=== PATIENT | female | born 1990 | race Caucasian/White ===

== ENCOUNTER 2023-02-14 21:04 | Emergency (ER) | payer MEDICARE ==
--- NOTE | 2023-02-14 21:05 | ERPHSYRPT ---
- History of Present Illness Time Seen by Provider: 02/14/23 21:04 Historian: patient, family (Additional independent history was obtained from the patient's mother) Exam Limitations: no limitations Physician History: This is an overweight 32-year-old white female patient who presents with epigastric abdominal pain 8 days after an upper and lower endoscopy. She began having pain 5 days ago and it was intermittent. It is a crampy sharp pain in the epigastric region. It is localized. Patient was diagnosed with esophagitis and had a rectal polyp removed. Patient has a history of GERD and is on Protonix for this. Patient has a history of hypothyroidism, depression, asthma, Crohn's disease, bipolar disorder, hypertension and diabetes. Patient has not had vomiting. She chronically has diarrhea. She has chronic intermittent dizziness. Patient denies chest pain. Patient denies shortness of breath. Patient has had a section in the past and cholecystectomy. Timing/Duration: day(s) (5), intermittent, worse Activities at Onset: none Quality: cramping, sharpness Abdominal Pain Onset Location: epigastric Pain Radiation: no radiation Severity of Pain-Max: moderate Severity of Pain-Current: mild (To moderate) Modifying Factors: Improves With: nothing Associated Symptoms: diarrhea, No chest pain, No nausea, No shortness of breath, No vomiting Allergies/Adverse Reactions: clindamycin Allergy (Verified 02/14/23 21:26) Vomiting ondansetron [From Zofran] Allergy (Verified 02/14/23 21:26) paroxetine [From Paxil] Allergy (Verified 02/14/23 21:26) Hives Home Medications: Aripiprazole [Abilify Maintena] 400 mg IM CLARIFY 11/14/22 [History] Meclizine HCl 25 mg [Antivert 25 mg] 1 tab PO Q6H PRN PRN 11/14/22 [History] Venlafaxine HCl [Venlafaxine HCl ER] 1 tab PO DAILY 11/14/22 [History] lamoTRIgine [Lamictal] 2 tab PO DAILY 11/14/22 [History] modafiniL [Modafinil] 1 tab PO BID 11/14/22 [History] Empagliflozin [Jardiance] 10 mg PO DAILY 02/14/23 [History] Levothyroxine Sodium 75 mcg PO DAILY 02/14/23 [History] Metoprolol Tartrate 50 mg [Lopressor 50 MG] 50 mg PO DAILY 02/14/23 [History] PANTOPRAZOLE 40 mg Tablet [Protonix 40MG Tablet] 1 tab PO DAILY 02/14/23 [History] Semaglutide [Ozempic] 0.5 mg SQ WEEKLY 02/14/23 [History] Hx Tetanus, Diphtheria Vaccination/Date Given: Yes Hx Influenza Vaccination/Date Given: Yes Travel Risk - International Travel Have you traveled outside of the country in past 3 weeks: No - Coronavirus Screening Are you exhibiting any of the following symptoms?: No Close contact with a COVID-19 positive Pt in past 14-21 Days: No - Vaccine Status Have you recieved a Covid-19 vaccination: Yes [employer]aster: Moderna - Vaccination Dates Date of 2cond Vaccination (if applicable): ? - Review of Systems Constitutional: No Symptoms Eyes: No Symptoms Ears, Nose, & Throat: No Symptoms Respiratory: No Symptoms Cardiac: No Symptoms Abdominal/Gastrointestinal: Abdominal Pain (Epigastric region), Appetite Changes Genitourinary Symptoms: No Symptoms Musculoskeletal: No Symptoms Skin: No Symptoms Neurological: No Symptoms Psychological: No Symptoms Endocrine: No Symptoms Hematologic/Lymphatic: No Symptoms Immunological/Allergic: No Symptoms All Other Systems: Reviewed and Negative - Past Medical History Pertinent Past Medical History: Yes Respiratory History: Asthma Endocrine Medical History: Hypothyroidism, Other Musculoskeletal History: Fractures, Osteoporosis, Other GI Medical History: Crohns Disease, Gallbladder Disease Psycho-Social History: Anxiety, Bipolar, Depression Other Medical History: sleep apnea, pseudo hypo parathyroidism, scoliosis, fx collar bone - Past Surgical History Past Surgical History: Yes Gastrointestinal: Cholecystectomy Female Surgical History: Section Other Surgical History: 16 teeth extracted - Social History Smoking Status: Never smoker Exposure to second hand smoke: No Drug Use: none Patient Lives Alone: No - Nursing Vital Signs Nursing Vital Signs: Initial Vital Signs Temperature 97.3 F 02/14/23 21:11 Pulse Rate 105 H 02/14/23 21:11 Respiratory Rate 18 02/14/23 21:11 Blood Pressure 121/94 02/14/23 21:11 O2 Sat by Pulse Oximetry 99 02/14/23 21:11 Pain Scale Pain Intensity 4 - Physical Exam General Appearance: no apparent distress, alert, anxiety Eye Exam: PERRL/EOMI, eyes nml inspection Ears, Nose, Throat Exam: normal ENT inspection, moist mucous membranes Neck Exam: normal inspection, non-tender, supple, full range of motion Respiratory Exam: normal breath sounds, lungs clear, airway intact, No chest tenderness, No respiratory distress Cardiovascular Exam: regular rate/rhythm, normal heart sounds, normal peripheral pulses Gastrointestinal/Abdomen Exam: soft, normal bowel sounds, tenderness (Epigastric region), guarding (Epigastric region) Pelvic Exam: not done Rectal Exam: not done Back Exam: normal inspection, normal range of motion, No CVA tenderness, No vertebral tenderness Extremity Exam: normal inspection, normal range of motion, pelvis stable Neurologic Exam: alert, oriented x 3, cooperative, 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, normal mood/affect, nml cerebellar function, nml station & gait, sensation nml Skin Exam: normal color, warm, dry Lymphatic Exam: No adenopathy SpO2 Interpretation: normal O2 Delivery: Room Air - Course Nursing assessment & vital signs reviewed: Yes Ordered Tests: Active Orders 24 hr Category Date Time Status IV Insertion STAT Care 02/14/23 21:38 Active ABDOMEN AND PELVIS W/0 CONTRAS [CT] Stat Exams 02/14/23 21:38 Completed AMYLASE Stat Lab 02/14/23 21:40 Completed CBC W DIFF Stat Lab 02/14/23 21:38 Completed CMP Stat Lab 02/14/23 21:40 Completed HCG QUALITATIVE, URINE Stat Lab 02/14/23 Completed LIPASE Stat Lab 02/14/23 21:40 Completed UA W/RFX UR CULTURE Stat Lab 02/14/23 21:41 Completed Medication Summary Discontinued Medications Generic Name Dose Route Start Last Admin Trade Name Marcelq PRN Reason Stop Dose Admin Al Hydrox/Mg Hydrox/Simethicone Confirm 02/14/23 23:12 Mag Hydrox/Al Hydrox/Simeth 30 Ml Udcup Administered 02/14/23 23:13 Dose 30 ml .ROUTE .STK-MED ONE Hydromorphone HCl 0.5 mg 02/14/23 21:38 02/14/23 21:46 Hydromorphone 1 Mg/1ml Inj IV 02/14/23 21:39 0.5 mg STAT ONE Administration Hydromorphone HCl Confirm 02/14/23 21:43 Hydromorphone 1 Mg/1ml Inj Administered 02/14/23 21:44 Dose 1 mg .ROUTE .STK-MED ONE Sodium Chloride 1,000 mls @ 999 mls/hr 02/14/23 21:38 02/14/23 22:51 Sodium Chloride 0.9% 1000 Ml IV 02/14/23 22:38 Infused .Q1H1M STA Infusion Sodium Chloride Confirm 02/14/23 21:44 Sodium Chloride 0.9% 1000 Ml Administered 02/14/23 21:45 Dose 1,000 mls @ ud .ROUTE .STK-MED ONE Lidocaine HCl Confirm 02/14/23 23:12 Lidocaine Hcl Viscous 1 Ml Administered 02/14/23 23:13 Dose 15 ml .ROUTE .STK-MED ONE Magnesium Hydroxide 45 ml 02/14/23 23:09 02/14/23 23:13 Mag Hydrx/Alum Hyd/Simeth/Lido 45 Ml Bottle PO 02/14/23 23:10 45 ml STAT ONE Administration Prochlorperazine Edisylate 5 mg 02/14/23 21:38 02/14/23 21:46 Prochlorperazine Edisylate 10 Mg/2 Ml Vial IV 02/14/23 21:39 5 mg STAT ONE Administration Prochlorperazine Edisylate Confirm 02/14/23 21:44 Prochlorperazine Edisylate 10 Mg/2 Ml Vial Administered 02/14/23 21:45 Dose 10 mg .ROUTE .STK-MED ONE Promethazine HCl Confirm 02/14/23 23:27 Promethazine Hcl 25 Mg Tablet Administered 02/14/23 23:28 Dose 25 mg .ROUTE .STK-MED ONE Lab/Rad Data: Laboratory Result Diagrams 02/14/23 21:38 02/14/23 21:40 Laboratory Results 02/14/23 02/14/23 02/14/23 Range/Units Unknown 21:41 21:40 WBC (4.0-10.5) x10^3/uL RBC (4.1-5.4) x10^6/uL Hgb (12.0-16.0) g/dL Hct (35-47) % MCV (78-100) fL MCH (26-32) pg MCHC (32-36) g/dL RDW (11.5-14.0) % Plt Count (150-450) x10^3/uL MPV (7.5-11.0) fL Gran % (36.0-66.0) % Immature Gran % (Auto) (0.00-0.4) % Nucleat RBC Rel Count (0.00-0.1) % Eos # (Auto) (0-0.5) x10^3/uL Immature Gran # (Auto) (0.00-0.03) x10^3u/L Absolute Lymphs (auto) (1.0-4.6) x10^3/uL Absolute Monos (auto) (0.0-1.3) x10^3/uL Absolute Nucleated RBC (0.00-0.01) x10^3u/L Lymphocytes % (24.0-44.0) % Monocytes % (0.0-12.0) % Eosinophils % (0.00-5.0) % Basophils % (0.0-0.4) % Absolute Granulocytes (1.4-6.9) x10^3/uL Basophils # (0-0.4) x10^3/uL Sodium (137-145) mmol/L Potassium (3.5-5.1) mmol/L Chloride (98-107) mmol/L Carbon Dioxide (22-30) mmol/L Anion Gap (5-15) MEQ/L BUN (7-17) mg/dL Creatinine (0.52-1.04) mg/dL Estimated GFR ML/MIN Glucose (74-106) mg/dL Calcium (8.4-10.2) mg/dL Total Bilirubin (0.2-1.3) mg/dL AST (14-36) U/L ALT (0-35) U/L Alkaline Phosphatase (38-126) U/L Serum Total Protein (6.3-8.2) g/dL Albumin (3.5-5.0) g/dL Amylase (30-110) U/L Lipase 83 (23-300) U/L Urine Color Yellow (Yellow) Urine Appearance Cloudy A (Clear) Urine pH 7.0 (4.6-8.0) Ur Specific [place] 1.015 (1.005-1.030) Urine Protein Negative (Negative) Urine Glucose (UA) Negative (Negative) mg/dL Urine Ketones Negative (Negative) Urine Blood Negative (Negative) Urine Nitrite Negative (Negative) Urine Bilirubin Negative (Negative) Urine Urobilinogen 0.2 (0.2) mg/dL Ur Leukocyte Esterase Trace A (Negative) U Hyaline Cast (Auto) NONE SEEN (0-2) /LPF Urine Microscopic RBC 0-2 (0-5) /HPF Urine Microscopic WBC 3-5 (0-5) /HPF Ur Epithelial Cells Few (None Seen) /HPF Urine Bacteria Rare A (None Seen) /HPF Urine Culture Reflexed NO (NO) Urine HCG, Qual NEGATIVE (NEGATIVE) 02/14/23 02/14/23 Range/Units 21:40 21:38 WBC 7.8 (4.0-10.5) x10^3/uL RBC 6.27 H (4.1-5.4) x10^6/uL Hgb 14.6 (12.0-16.0) g/dL Hct 46.5 (35-47) % MCV 74.2 L (78-100) fL MCH 23.3 L (26-32) pg MCHC 31.4 L (32-36) g/dL RDW 17.4 H (11.5-14.0) % Plt Count 340 (150-450) x10^3/uL MPV 9.0 (7.5-11.0) fL Gran % 63.5 (36.0-66.0) % Immature Gran % (Auto) 0.5 H (0.00-0.4) % Nucleat RBC Rel Count 0.0 (0.00-0.1) % Eos # (Auto) 0 (0-0.5) x10^3/uL Immature Gran # (Auto) 0.04 H (0.00-0.03) x10^3u/L Absolute Lymphs (auto) 2.40 (1.0-4.6) x10^3/uL Absolute Monos (auto) 0.39 (0.0-1.3) x10^3/uL Absolute Nucleated RBC 0.00 (0.00-0.01) x10^3u/L Lymphocytes % 31.0 (24.0-44.0) % Monocytes % 5.0 (0.0-12.0) % Eosinophils % 0.0 (0.00-5.0) % Basophils % 0.0 (0.0-0.4) % Absolute Granulocytes 4.92 (1.4-6.9) x10^3/uL Basophils # 0 (0-0.4) x10^3/uL Sodium 138 (137-145) mmol/L Potassium 3.2 L (3.5-5.1) mmol/L Chloride 105 (98-107) mmol/L Carbon Dioxide 22 (22-30) mmol/L Anion Gap 14.1 (5-15) MEQ/L BUN 7 (7-17) mg/dL Creatinine 0.76 (0.52-1.04) mg/dL Estimated GFR > 60.0 ML/MIN Glucose 112 H (74-106) mg/dL Calcium 7.0 L (8.4-10.2) mg/dL Total Bilirubin 0.80 (0.2-1.3) mg/dL AST 39 H (14-36) U/L ALT 22 (0-35) U/L Alkaline Phosphatase 226 H (38-126) U/L Serum Total Protein 7.2 (6.3-8.2) g/dL Albumin 4.1 (3.5-5.0) g/dL Amylase 57 (30-110) U/L Lipase (23-300) U/L Urine Color (Yellow) Urine Appearance (Clear) Urine pH (4.6-8.0) Ur Specific [place] (1.005-1.030) Urine Protein (Negative) Urine Glucose (UA) (Negative) mg/dL Urine Ketones (Negative) Urine Blood (Negative) Urine Nitrite (Negative) Urine Bilirubin (Negative) Urine Urobilinogen (0.2) mg/dL Ur Leukocyte Esterase (Negative) U Hyaline Cast (Auto) (0-2) /LPF Urine Microscopic RBC (0-5) /HPF Urine Microscopic WBC (0-5) /HPF Ur Epithelial Cells (None Seen) /HPF Urine Bacteria (None Seen) /HPF Urine Culture Reflexed (NO) Urine HCG, Qual (NEGATIVE) - Progress Progress: improved, pain not gone completely Progress Note: 02/14/23 21:46 This patient's medical issue is 1 of moderate complexity. The level complexity in the work-up performed is based on review of the patient's past medical history, review of the patient's medication list, review of the patient's drug allergy list, history present illness and physical findings on examination. Work-up in this patient includes placement of intravenous line, infusion normal saline solution, infusion of half a milligram of Dilaudid, infusion of 5 mg intravenous of Compazine, CBC, CMP, urine test, amylase, lipase, urinalysis and CT scan of the abdomen pelvis without contrast. 02/14/23 23:06 I reviewed the laboratory results. There is no evidence of any acute, emergent medical issue. She has a mild hypokalemia. We will provide her with 10 mEq of potassium. We are also going to add a H. pylori breath test. CT scan of the abdomen pelvis without contrast was interpreted by the radiologist. I reviewed the impression. There is no evidence of any acute intra-abdominal or intrapelvic abnormality. 02/14/23 23:29 Patient was able to hold down the oral liquid required for H. pylori breath test. However, she did not tolerate the GI cocktail and spit the majority of that up. Counseled pt/family regarding: lab results, diagnosis, need for follow-up, rad results Medical Desision Making - Independent Historian Additional History obtained from: Mother - Diagnostic Testing Diagnostic test were ordered, analyzed, and reviewed by me: Yes Radiological Interpretation: Reviewed by me, Teleradiologist Report - Risk of complications The pt has a mod risk of morbidity or mortality based on: Need for prescription drug management - Departure Departure Disposition: Home Clinical Impression: Epigastric pain Condition: Stable Critical Care Time: No Referrals: RICHIE GARAY [Primary Care Provider] - Follow up/PCP as directed Additional Instructions: Clear liquid diet. Advance as tolerated. Avoid fatty greasy spicy foods. Take your medication as prescribed. Call your primary care provider and screen handler on 02/17/2023 to make them aware of your symptoms and to make a follow-up appointment for further evaluation management.. Prescriptions: Promethazine HCl 25 mg [Phenergan 25 mg] 25 mg PO Q8H PRN PRN #10 tablet PRN Reason: Nausea/Vomiting
[2023-02-14 21:13] VITALS: RESP 18; TEMP 97.3
[2023-02-14] MEDS ORDERED: Hydromorphone 1 mg/ml Injection IV ONE (21:38)
[2023-02-14] MEDS ORDERED: Compazine 10 MG/2 ML IV ONE (21:38)
[2023-02-14] MEDS ORDERED: Sodium Chloride 0.9% 1000 ML 1,000 ML IV STA (21:38)
[2023-02-14] MEDS ORDERED: Hydromorphone 1 mg/ml Injection ONE (21:43)
[2023-02-14] MEDS ORDERED: Sodium Chloride 0.9% 1000 ML 1,000 ML ONE (21:44)
[2023-02-14] MEDS ORDERED: Compazine 10 MG/2 ML ONE (21:44)
[2023-02-14 21:53] LABS: Absolute Neutrophil Ct (ANC) 4.92 x10^3/uL (1.4-6.9); Basophil (Absolute #) 0 x10^3/uL (0-0.4); Eosinophil (Absolute #) 0 x10^3/uL (0-0.5); Hematocrit 46.5 % (35-47); Hemoglobin 14.6 g/dL (12.0-16.0); IMMATURE GRAN # 0.04 x10^3u/L (0.00-0.03); IMMATURE GRAN % 0.5 % (0.00-0.4); Mean Cell Volume 74.2 fL (78-100); Mean Corpuscular Hemoglobin 23.3 pg (26-32); Mean Corpuscular Hgb Concent. 31.4 g/dL (32-36); Monocyte (Absolute #) 0.39 x10^3/uL (0.0-1.3); Neutrophil % 63.5 % (36.0-66.0); Platelet Count 340 x10^3/uL (150-450); Red Blood Count 6.27 x10^6/uL (4.1-5.4); Red Cell Distribution Width 17.4 % (11.5-14.0); White Blood Count 7.8 x10^3/uL (4.0-10.5)
[2023-02-14 21:57] LABS: HCG URINE TEST NEGATIVE (NEGATIVE)
[2023-02-14 22:01] LABS: ADD URINE CULTURE? NO (NO); Appearance Cloudy (Clear); Bacteria Rare /HPF (None Seen); Bilirubin Negative (Negative); Blood Negative (Negative); Epithelial Cells Few /HPF (None Seen); Glucose, Urine Negative (Negative); Hyaline Casts NONE SEEN /LPF (0-2); Ketones Negative (Negative); Leukocyte Esterase Trace (Negative); Nitrite Negative (Negative); Protein,Urine Dip Negative (Negative); RBC 0-2 /HPF (0-5); Specific Gravity 1.015 (1.005-1.030); Urobilinogen 0.2 mg/dL (0.2)
[2023-02-14 22:08] LABS: ALBUMIN 4.1 g/dL (3.5-5.0); ALKALINE PHOSPHATASE 226 U/L (38-126); AMYLASE 57 U/L (30-110); ANION GAP 14.1 MEQ/L (5-15); BLOOD UREA NITROGEN 7 mg/dL (7-17); CHLORIDE 105 mmol/L (98-107); Carbon Dioxide 22 mmol/L (22-30); Creatinine 1 0.76 mg/dL (0.52-1.04); EST GLOMERULAR FILTRATION RATE > 60.0 ML/MIN; Glucose 112 mg/dL (74-106); Potassium 3.2 mmol/L (3.5-5.1); SGOT/AST 39 U/L (14-36); SGPT/ALT 22 U/L (0-35); SODIUM 138 mmol/L (137-145); Total Protein 7.2 g/dL (6.3-8.2)
--- NOTE | 2023-02-14 22:47 | XRAY ---
CLINICAL HISTORY:Epigastric abdominal pain COMPARISON:None TECHNIQUE:CT scan of the abdomen and pelvis was performed without IV contrast.Coronal and sagittal reconstructive images were also obtained. FINDINGS: Sections of lower thorax show small clustered nodules in posterobasal segment of right lower lobe, largest measuring 5 mm. Abdomen: The liver is mildly enlarged in size, measuring 16 cm craniocaudally. No focal or diffuse parenchymal abnormality. The intrahepatic biliary radicals and the bile ducts are normal. The spleen is mildly enlarged in size, measuring 13 cm craniocaudally. The pancreas, adrenal glands are unremarkable. The kidneys are normal in size and shape. No calculi or hydronephrosis. Few small areas of focal cortical scarring seen in both kidneys with mild perinephric fat stranding. The gallbladder is surgically removed. The ascending colon, the transverse colon, the descending colon, visualized small bowel loops are unremarkable. Appendix appears normal. There is no evidence of significant enlargement of the mesenteric or retroperitoneal lymph nodes. Pelvis: The urinary bladder shows inadequate distension. The rectosigmoid colon is unremarkable. The uterus and adnexa appear unremarkable. No evidence of pelvic lymphadenopathy. No definite bony abnormalities could be depicted. IMPRESSION: 1. No significant acute abnormality detected in abdomen and pelvis 2. Mild hepatosplenomegaly 3. Small focal areas of cortical scarring in both kidneys with mild perinephric fat stranding, could represent sequelae to previous insult 4. Small clustered nodules in posterobasal segment of right lower lobe, largest measuring 5 mm, Low risk as per [employer] guidelines Electronically Signed by: Osmel Jones MD. (02/14/2023 21:45:57 [employer]INDLE [employer]UMBER)
[2023-02-14 23:09] VITALS: BP 92/70; PULSE 85; O2SAT 97
[2023-02-14] MEDS ORDERED: GI COCKTAIL 45 ML (Maalox/Lidocaine) PO ONE (23:09)
[2023-02-14] MEDS ORDERED: XYLOCAINE HCl Viscous ONE (23:12)
[2023-02-14] MEDS ORDERED: MAALOX ES 30 ML UNIT DOSE ONE (23:12)
[2023-02-14] MEDS ORDERED: PHENERGAN 25 MG ONE (23:27)
[2023-02-14] MEDS ORDERED: PHENERGAN 25 MG PO ONE (23:30)
[2023-02-18 10:14] LABS: H pylori Breath Test Negative (Negative)
== END 2023-02-14 23:43 | disposition home or self-care (01) ==
LOC: ED 21:04
DX: R10.13 Epigastric pain (principal); I10 Essential (primary) hypertension; E11.9 Type 2 diabetes mellitus without complications; Z79.84 Long term (current) use of oral hypoglycemic drugs; Z79.85 Long-term (current) use of injectable non-insulin antidiabetic drugs; Z79.899 Other long term (current) drug therapy
CPT/HCPCS: 36000; 36415; 74176; 80053; 81001; 81025; 82150; 83013; 83690; 85025; 96360; 96374; 96375; 99284; J1170; A9270-GY

== ENCOUNTER 2023-06-17 23:03 | Emergency (ER) | payer MEDICARE | END 2023-06-18 01:00 | disposition left against medical advice (07) | LOC: ED 23:03 | DX: Z53.21 Procedure and treatment not carried out due to patient leaving prior to being seen by health care provider (principal) ==

== ENCOUNTER 2023-08-13 11:18 | Day surgery (SDC) | payer MEDICARE ==
[2023-08-13] MEDS ORDERED: LIDOCAINE HCL 1% 50 MG/5 ML VL PF IJ ONE (11:19)
[2023-08-13] MEDS ORDERED: Sodium Chloride 0.9(Preservative Free) 10 ML IJ ONE (11:19)
[2023-08-13] MEDS ORDERED: Depo-Medrol 40 MG/ML IM ONE (11:19)
[2023-08-13 11:48] LABS: HCG URINE TEST NEGATIVE (NEGATIVE)
[2023-08-13] MEDS ORDERED: Versed 2 MG/2 ML Injection ONE (12:08)
[2023-08-13] MEDS ORDERED: DIPRIVAN 200 MG/20 ML IV ONE (13:32)
[2023-08-13] MEDS ORDERED: Lactated Ringers 1,000 ML IV ONE (13:46)
--- NOTE | 2023-08-13 15:14 | XRAY ---
Indication: Lumbar MICHAEL. Intraoperative fluoroscopy provided for 21 seconds. 2 digital spot image submitted for interpretation demonstrates posterior needle tip projecting posterior to L4-L5 interspace. Small amount of contrast injected for needle tip placement. Correlate with intraoperative findings/report.
--- NOTE | 2023-08-13 15:16 | XRAY ---
21 seconds of fluoroscopy was used in surgery for a lumbar MICHAEL.
== END 2023-08-13 13:52 | disposition home or self-care (01) ==
LOC: SDC-PAIN 11:18
PROVIDERS: ATTEND Psychiatry & Neurology Pain Medicine
DX: M54.16 Radiculopathy, lumbar region (principal)
CPT/HCPCS: 62323; 72100; 77003; 81025; J1010; J2001; J2250; J2704; Q9966

== ENCOUNTER 2023-08-29 16:45 | Emergency (ER) | payer MEDICARE ==
--- NOTE | 2023-08-29 16:49 | ERPHSYRPT ---
- History of Present Illness Time Seen by Provider: 08/29/23 16:46 Source: patient Exam Limitations: no limitations Physician History: This is an overweight 33-year-old white female patient who was at home and approximately 1:00 to 2:00 this afternoon the patient's left ankle and foot were in a position while she was lying down causing her to have some numbness in these areas. She then thought in order to "wake up, the left foot and ankle she stood up and the foot extended and then she went to step down and the left foot and ankle rolled. She was having pain in the left anterior ankle and dorsum of the left foot. She presented to the emergency department wearing a left foot shoe. She was brought back to the emergency department room in a wheelchair. Patient does see Dr. Garcia who is a pain specialist. She had an appointment scheduled with him yesterday, 08/28/2023. Patient has a history of gastroesophageal reflux disease, hypothyroidism, depression, asthma, Crohn's disease, bipolar disorder, hypertension and diarrhea Method of Injury: twisted Occurred: this afternoon Quality: constant, aching Severity of Pain-Max: mild (To moderate) Severity of Pain-Current: mild Lower Extremities Pain: foot: left, ankle: left Modifying Factors: Improves With: movement Associated Symptoms: other (To bear weight) Allergies/Adverse Reactions: clindamycin Allergy (Verified 08/29/23 16:50) Vomiting ondansetron [From Zofran] Allergy (Verified 08/29/23 16:50) paroxetine [From Paxil] Allergy (Verified 08/29/23 16:50) Hives Home Medications: Aripiprazole [Abilify Maintena] 400 mg IM CLARIFY 11/14/22 [History] Meclizine HCl 25 mg [Antivert 25 mg] 1 tab PO Q6H PRN PRN 11/14/22 [History] Venlafaxine HCl [Venlafaxine HCl ER] 1 tab PO DAILY 11/14/22 [History] lamoTRIgine [Lamictal] 2 tab PO DAILY 11/14/22 [History] modafiniL [Modafinil] 1 tab PO BID 11/14/22 [History] Empagliflozin [Jardiance] 10 mg PO DAILY 02/14/23 [History] Levothyroxine Sodium 75 mcg PO DAILY 10/20/23 [History] Metoprolol Tartrate 50 mg [Lopressor 50 MG] 50 mg PO DAILY 02/14/23 [History] PANTOPRAZOLE 40 mg Tablet [Protonix 40MG Tablet] 1 tab PO DAILY 02/14/23 [History] Semaglutide [Ozempic] 0.5 mg SQ WEEKLY 02/14/23 [History] Hx Tetanus, Diphtheria Vaccination/Date Given: Yes Hx Influenza Vaccination/Date Given: Yes Hx Pneumococcal Vaccination/Date Given: No Travel Risk - International Travel Have you traveled outside of the country in past 3 weeks: No - Emerging Infectious Disease Are you exhibiting symptoms associated with any current EIDs: No - Review of Systems Constitutional: No Symptoms Eyes: No Symptoms Ears, Nose, & Throat: No Symptoms Respiratory: No Symptoms Cardiac: No Symptoms Abdominal/Gastrointestinal: No Symptoms Genitourinary Symptoms: No Symptoms Musculoskeletal: Injury (Left ankle and left foot) Skin: No Symptoms Neurological: No Symptoms Psychological: No Symptoms Endocrine: No Symptoms Hematologic/Lymphatic: No Symptoms Immunological/Allergic: No Symptoms All Other Systems: Reviewed and Negative - Past Medical History Pertinent Past Medical History: Yes Neurological History: No Pertinent History ENT History: No Pertinent History Cardiac History: Hypertension Respiratory History: Asthma Endocrine Medical History: Hypothyroidism, Other Musculoskeletal History: Fractures, Osteoporosis, Other GI Medical History: Crohns Disease, Gallbladder Disease History: No Pertinent History Psycho-Social History: Anxiety, Bipolar, Depression Other Medical History: sleep apnea, pseudo hypo parathyroidism, scoliosis, fx collar bone - Past Surgical History Past Surgical History: Yes Gastrointestinal: Cholecystectomy Female Surgical History: Section Other Surgical History: 16 teeth extracted - Social History Smoking Status: Never smoker Exposure to second hand smoke: No Drug Use: none Patient Lives Alone: No - Physical Exam General Appearance: no apparent distress, alert, anxiety, obese Eyes, Ears, Nose, Throat Exam: normal ENT inspection, moist mucous membranes Neck Exam: normal inspection, non-tender, supple, full range of motion Cardiovascular/Respiratory Exam: chest non-tender, no respiratory distress Gastrointestinal/Abdominal Exam: non-tender Back Exam: normal inspection, normal range of motion, No CVA tenderness, No vertebral tenderness Hips Exam: bilateral: non-tender, normal inspection, normal range of motion, no evidence of injury Legs Exam: bilateral leg: non-tender, normal inspection, normal range of motion, no evidence of injury Knees Exam: bilateral knee: non-tender, normal inspection, normal range of motion, no evidence of injury Ankle Exam: right ankle: non-tender, left ankle: soft tissue tenderness, bilateral ankle: normal inspection, normal range of motion, no evidence of injury Foot Exam: right foot: non-tender, bilateral foot: normal inspection, normal range of motion, no evidence of injury Neuro/Tendon Exam: normal sensation, normal motor functions, normal tendon functions, responds to pain, no evidence tendon injury Mental Status Exam: alert, oriented x 3, cooperative Skin Exam: normal color, warm, dry SpO2 Interpretation: normal - Course Nursing assessment & vital signs reviewed: Yes Ordered Tests: Active Orders 24 hr Category Date Time Status ANKLE (3 VIEWS) Stat Exams 08/29/23 16:50 Ordered FOOT (MINIMUM 3 VIEWS) Stat Exams 08/29/23 16:50 Ordered - Progress Progress: unchanged Progress Note: 08/29/23 17:07 My medical decision and the assignment of low complexity to this patient's medical issue is based on review of the patient's past medical history, review of patient's medication list, review the patient drug allergy list, history present illness and physical findings on examination. The workup in this patient includes x-ray of the left ankle and left foot. Differential diagnosis is left foot and ankle sprain, left foot and ankle dislocation, left foot and ankle fracture. The x-ray of the left ankle was interpreted by the radiologist and I reviewed the impression. The impression states no acute fracture or dislocation but mild, lateral soft tissue swelling. The x-ray of the left foot was interpreted by radiologist and I reviewed the impression. The impression states no acute fracture or dislocation. 08/29/23 17:12 Counseled pt/family regarding: diagnosis, need for follow-up, rad results Medical Desision Making - Diagnostic Testing Diagnostic test were ordered, analyzed, and reviewed by me: Yes Radiological Interpretation: Reviewed by me, Teleradiologist Report - Risk of complications The pt has a mod risk of morbidity or mortality based on: Need for prescription drug management - Departure Departure Disposition: Home Clinical Impression: Sprain of left ankle, Sprain of left foot Condition: Stable Critical Care Time: No Referrals: RICHIE GARAY [Primary Care Provider] - Follow up/PCP as directed Additional Instructions: Ice pack to tender area 3 times a day for the next 48 hours. Use ibuprofen, Tylenol and the new prescription of Flexeril for pain relief. If symptoms have not significantly improved after 72 hours with your treatment regimen, follow-up with your primary care provider, podiatry at [facility] or use walk-in clinic at [facility] orthopedic clinic. This clinic is a walk-in clinic and does not require an appointment. It is open 8 AM to 10 AM Friday through Friday. Prescriptions: Cyclobenzaprine HCl 10 mg [Cyclobenzaprine 10 MG] 10 mg PO TID #10 tablet
[2023-08-29 17:02] VITALS: BP 119/76; PULSE 104; RESP 18; TEMP 97; O2SAT 96
--- NOTE | 2023-08-29 17:05 | XRAY ---
Indication: Pain following injury. Comparison: None 3 view left ankle demonstrates small plantar heel spur and mild lateral soft tissue swelling. No other bony, articular, or soft tissue abnormalities.
--- NOTE | 2023-08-29 17:05 | XRAY ---
Indication: Pain following injury. Comparison: None 3 nonweightbearing views left foot demonstrates small plantar heel spur. No other bony, articular, or soft tissue abnormalities.
== END 2023-08-29 17:16 | disposition home or self-care (01) ==
LOC: ED 16:45
DX: S93.402A Sprain of unspecified ligament of left ankle, initial encounter (principal); S93.602A Unspecified sprain of left foot, initial encounter; X50.0XXA Overexertion from strenuous movement or load, initial encounter; I10 Essential (primary) hypertension; Z79.85 Long-term (current) use of injectable non-insulin antidiabetic drugs; Z79.84 Long term (current) use of oral hypoglycemic drugs; Z79.899 Other long term (current) drug therapy
CPT/HCPCS: 73610; 73630; 99283

== ENCOUNTER 2023-09-17 12:54 | Day surgery (SDC) | payer MEDICARE ==
[2023-09-17] MEDS ORDERED: Xylocaine-Mpf 2% 5 Ml Vial IJ ONE (12:55)
[2023-09-17 13:07] LABS: HCG URINE TEST NEGATIVE (NEGATIVE)
[2023-09-17] MEDS ORDERED: Lactated Ringers 1,000 ML IV ONE (13:54)
[2023-09-17] MEDS ORDERED: DIPRIVAN 200 MG/20 ML IV ONE (14:16)
--- NOTE | 2023-09-17 16:29 | XRAY ---
Indication: Bilateral L4-S1 MBB. Intraoperative fluoroscopy provided for 23 seconds. Single digital spot image submitted for interpretation demonstrates posterior needle tips projecting over the expected left and right L4-S1 nerve roots. Correlate with intraoperative findings/report.
--- NOTE | 2023-09-17 17:20 | XRAY ---
23 seconds of fluoroscopy was used in surgery for a bilateral L4-S1 MBB.
== END 2023-09-17 14:55 | disposition home or self-care (01) ==
LOC: SDC-PAIN 12:54
PROVIDERS: ATTEND Psychiatry & Neurology Pain Medicine
DX: M47.816 Spondylosis without myelopathy or radiculopathy, lumbar region (principal)
CPT/HCPCS: 64493; 64494; 72020; 77002; 81025; J2704

== ENCOUNTER 2024-01-28 07:04 | Day surgery (SDC) | payer MEDICARE ==
[2024-01-28] MEDS ORDERED: Sodium Chloride 0.9(Preservative Free) 10 ML IJ ONE (07:05)
[2024-01-28] MEDS ORDERED: Depo-Medrol 40 MG/ML IM ONE (07:05)
[2024-01-28] MEDS ORDERED: LIDOCAINE HCL 1% AMPUL 5 ML IJ ONE (07:05)
[2024-01-28 07:18] LABS: HCG URINE TEST NEGATIVE (NEGATIVE)
[2024-01-28] MEDS ORDERED: DIPRIVAN 200 MG/20 ML IV ONE (08:27)
[2024-01-28] MEDS ORDERED: Xylocaine-Mpf 2% 5 Ml Vial ONE (08:27)
[2024-01-28] MEDS ORDERED: Lactated Ringers 1,000 ML IV ONE (09:52)
--- NOTE | 2024-01-28 10:35 | XRAY ---
Indication: Lumbar MICHAEL. Intraoperative fluoroscopy was provided for 10 seconds. 3 digital spot images submitted for interpretation demonstrates posterior needle tip projecting posterior to lumbosacral junction interspace. Small amount of contrast injected for needle placement. Correlate with intraoperative findings/report.
--- NOTE | 2024-01-28 11:33 | XRAY ---
10 seconds of fluoroscopy was used in surgery for a lumbar MICHAEL.
== END 2024-01-28 08:55 | disposition home or self-care (01) ==
LOC: SDC-PAIN 07:04
PROVIDERS: ATTEND Psychiatry & Neurology Pain Medicine
DX: M54.16 Radiculopathy, lumbar region (principal); E11.9 Type 2 diabetes mellitus without complications
CPT/HCPCS: 62323; 72100; 77003; 81025; 82947; J2704; Q9966

== ENCOUNTER 2024-03-11 08:19 | Day surgery (SDC) | payer MEDICARE ==
[2024-03-11] MEDS ORDERED: Depo-Medrol 40 MG/ML IM ONE (08:20)
[2024-03-11] MEDS ORDERED: BUPIVACAINE 0.5% VIAL IJ ONE (08:20)
[2024-03-11 09:03] LABS: HCG URINE TEST NEGATIVE (NEGATIVE)
[2024-03-11] MEDS ORDERED: D50W 50 ml Abboject IV ONE (09:30)
[2024-03-11] MEDS ORDERED: MORPHINE SULFATE 2 MG INJ ONE (09:54)
[2024-03-11] MEDS ORDERED: DIPRIVAN 200 MG/20 ML IV ONE ×2 (10:02→10:11)
--- NOTE | 2024-03-11 11:19 | XRAY ---
Indication: Left ankle injection. Intraoperative fluoroscopy provided for 15 seconds. 2 digital spot image submitted for interpretation demonstrates needle tip projecting over left talotibial articulation. Small amount of contrast injected for needle tip placement. Correlate with intraoperative findings/report.
--- NOTE | 2024-03-11 11:21 | XRAY ---
Indication: Right ankle injection. Intraoperative fluoroscopy provided for 6 seconds. Single digital spot image submitted for interpretation demonstrates needle tip projecting over right talotibial articulation. Small amount of contrast injected for needle tip placement. Correlate with intraoperative findings/report.
--- NOTE | 2024-03-11 11:35 | XRAY ---
15 seconds of fluoroscopy was used in surgery for a left intra-articular ankle injection.
--- NOTE | 2024-03-11 11:35 | XRAY ---
6 seconds of fluoroscopy was used in surgery for a right intra-articular ankle injection.
== END 2024-03-11 10:45 | disposition home or self-care (01) ==
LOC: SDC-PAIN 08:19
PROVIDERS: ATTEND Psychiatry & Neurology Pain Medicine
DX: M19.072 Primary osteoarthritis, left ankle and foot (principal); M19.071 Primary osteoarthritis, right ankle and foot; E11.9 Type 2 diabetes mellitus without complications
CPT/HCPCS: 20610; 73600; 77002; 81025; 82947; J2270; J2704; Q9966

== ENCOUNTER 2024-05-11 00:41 | Emergency (ER) | payer MEDICARE ==
[2024-05-11 00:53] VITALS: RESP 20; TEMP 96
[2024-05-11 01:13] VITALS: BP 105/78; PULSE 98; O2SAT 95
--- NOTE | 2024-05-11 01:23 | ERPHSYRPT ---
- History of Present Illness Historian: patient Exam Limitations: no limitations Patient Subjective Stated Complaint: C/O chest pain Triage Nursing Assessment: patient brought to ED by step father with c/o of chest pain/burning. patient has a thyroidectomy on the and states that her chest is burning and rates pain 7/10. patient has a hoarse cough, surgery done by Dr. Carrero at [place]. patient is slightly tachycardic, pulses normal, skin w/n/d, afebrile, gait stead, cap refill less than 3 sec, S1 and S2 heard, patient doesn't appear to be in any distress at this time. Physician History: Patient had thyroid surgery about 4 5 days ago. Today she started developing some pain in her anterior chest. It kind of starts about at the angle of the mandible and goes down midway down the sternum. She says it feels like a burning whenever she breathes or swallows it seems to hurt. She cannot describe much more than that. She is not short of breath. She does not have any dysphagia.She has no fever or chills. She is breathing easily. Aspirin Treatment Today: no aspirin today Allergies/Adverse Reactions: clindamycin Allergy (Verified 05/11/24 00:53) Vomiting ondansetron [From Zofran] Allergy (Verified 05/11/24 00:53) paroxetine [From Paxil] Allergy (Verified 05/11/24 00:53) Hives Home Medications: Aripiprazole [Abilify Maintena] 400 mg IM CLARIFY 11/14/22 [History] Meclizine HCl 25 mg [Antivert 25 mg] 1 tab PO Q6H PRN PRN 11/14/22 [History] Venlafaxine HCl [Venlafaxine HCl ER] 1 tab PO DAILY 11/14/22 [History] lamoTRIgine [Lamictal] 2 tab PO DAILY 11/14/22 [History] Levothyroxine Sodium 100 mcg PO DAILY 02/14/23 [History] PANTOPRAZOLE 40 mg Tablet [Protonix 40MG Tablet] 1 tab PO DAILY 02/14/23 [History] Blood-Glucose Sensor [Dexcom G7 Sensor] 1 applic SQ DAILY 05/11/24 [History] Meloxicam 7.5 mg PO DAILY 05/11/24 [History] Tirzepatide [Mounjaro] 12.5 mg IJ WEEKLY 05/11/24 [History] Venlafaxine HCl [Effexor Xr] 150 mg PO DAILY 05/11/24 [History] armodafiniL 200 mg PO DAILY 05/11/24 [History] calcitrioL [Calcitriol] 0.5 mg PO DAILY 05/11/24 [History] Hx Tetanus, Diphtheria Vaccination/Date Given: Yes Hx Influenza Vaccination/Date Given: Yes Hx Pneumococcal Vaccination/Date Given: No Travel Risk - International Travel Have you traveled outside of the country in past 3 weeks: No - Emerging Infectious Disease Are you exhibiting symptoms associated with any current EIDs: No - Review of Systems Constitutional: No Symptoms Eyes: No Symptoms Respiratory: No Symptoms Cardiac: No Symptoms - Past Medical History Pertinent Past Medical History: Yes Neurological History: Epilepsy ENT History: No Pertinent History Cardiac History: Hypertension Respiratory History: Asthma Endocrine Medical History: Diabetes Type II, Hypothyroidism, Other Musculoskeletal History: Osteoarthritis, Osteoporosis GI Medical History: Crohns Disease, Gallbladder Disease History: No Pertinent History Psycho-Social History: Anxiety, Bipolar, Depression Other Medical History: HIGH LIVER ENZYMES, FATTY LIVER, KNEE AND ANKLE PROBLEMS. LOW CALCIUM DIAGNOSIS. 3 BROKEN RIBS. - Past Surgical History Past Surgical History: Yes Gastrointestinal: Cholecystectomy Female Surgical History: Section Other Surgical History: 16 teeth extracted, thyroidectomy 05/06/2024 - Female History Hx Last Menstrual Period: 2022 Hx Now: No - Social History Smoking Status: Never smoker Exposure to second hand smoke: No Drug Use: none Patient Lives Alone: No - Social Determinants of Health Will the patient participate in the screening: Declined to provide - Nursing Vital Signs Nursing Vital Signs: Initial Vital Signs Temperature 96 F 05/11/24 00:42 Pulse Rate 103 H 05/11/24 00:42 Respiratory Rate 20 05/11/24 00:42 Blood Pressure 115/85 05/11/24 00:42 O2 Sat by Pulse Oximetry 98 05/11/24 00:42 Pain Scale Pain Intensity 7 - Physical Exam General Appearance: no apparent distress Eye Exam: PERRL/EOMI Respiratory Exam: normal breath sounds, lungs clear, respiratory distress, No chest tenderness Cardiovascular Exam: regular rate/rhythm, normal heart sounds, normal peripheral pulses SpO2: 95 Ordered Tests: Active Orders 24 hr Category Date Time Status EKG-ER Only STAT Care 05/11/24 01:15 Active CHEST 2 VIEWS (PA AND LAT) Stat Exams 05/11/24 01:20 Ordered - Progress Progress: unchanged Progress Note: A 2 view of the chest was done. No acute findings were seen. At this time I do not think I know what to doFor her. I do not think that it is dangerous or life-threatening. 05/11/24 01:34 Medical Desision Making - Diagnostic Testing Radiological Interpretation: Interpreted by me - Risk of complications Minimal Risk: Minimal risk of morbidity - Departure Departure Disposition: Home Clinical Impression: Bronchitis Condition: Stable Critical Care Time: No Referrals: RICHIE GARAY [Primary Care Provider] - Follow up/PCP as directed
--- NOTE | 2024-05-11 09:05 | XRAY ---
Indication: Pain. Status post thyroidectomy. Comparison: None PA/lateral chest demonstrates minimal left lung base subsegmental atelectasis/scarring. Remaining heart and lungs normal. Bony thorax intact with moderate dextrorotoscoliosis centered at T9. Surgical clips base of neck with drainage tubing in situ.
== END 2024-05-11 01:58 | disposition home or self-care (01) ==
LOC: ED 00:41
DX: J40 Bronchitis, not specified as acute or chronic (principal); R07.9 Chest pain, unspecified; I10 Essential (primary) hypertension; E11.9 Type 2 diabetes mellitus without complications; Z79.85 Long-term (current) use of injectable non-insulin antidiabetic drugs; Z79.899 Other long term (current) drug therapy
CPT/HCPCS: 71046; 93005; 99283; 99284